=== PATIENT | male | born 1980 | race Caucasian/White ===

== ENCOUNTER 2017-08-06 01:41 | Emergency (ER) | payer MEDICAID, SELFPAY ==
[~2017-08-06] VITALS: Ht 185.4 cm; Wt 82.0 kg
[2017-08-06 02:50] VITALS: BP 135/82
== END 2017-08-06 02:52 | disposition home or self-care (01) ==
LOC: ED 02:15
DX: R07.2 Precordial pain (principal); F15.10 Other stimulant abuse, uncomplicated; F17.200 Nicotine dependence, unspecified, uncomplicated
CPT/HCPCS: 71020; 93005; 99284